=== PATIENT | female | born 1935 | race Caucasian/White ===

== ENCOUNTER 2024-05-05 10:55 | Outpatient (CLI) | payer MEDICARE, OTHER, SELFPAY ==
--- NOTE | 2024-05-05 10:45 | RT.EKG_ITS ---
APPROVED REPORT Exam: Resting ECG Reason for Exam: hx of HB Patient Location: O HR:95 bpm ECG Measurements Heart Rate 95 AXIS OK 158 P 37 QRSd 83 QRS 29 QT 337 T 44 QTc 424 Conclusion Sinus rhythm...normal P axis, V-rate 50- 99 Abnormal R-wave progression, early transition...QRS area>0 in V2 Otherwise normal ECG
== END 2024-05-05 10:56 | disposition home or self-care (01) ==
LOC: DI.CARD 10:59
PROVIDERS: PCP Internal Medicine; Visit Provider Student in an Organized Health Care Education/Training Program
DX: I44.2 Atrioventricular block, complete (principal); Z95.0 Presence of cardiac pacemaker
CPT/HCPCS: 93010

== ENCOUNTER → 2024-05-05 11:22 | Outpatient (BNVA) | payer MEDICARE, OTHER, SELFPAY | PROVIDERS: PCP Internal Medicine; Referring Provider Internal Medicine; Visit Provider Student in an Organized Health Care Education/Training Program | DX: Z95.810 Presence of automatic (implantable) cardiac defibrillator (principal); I44.1 Atrioventricular block, second degree | CPT/HCPCS: 93005; 93282 ==

== ENCOUNTER → 2024-11-03 14:05 | Outpatient (BNVA) | payer MEDICARE, SELFPAY | PROVIDERS: PCP Family Medicine; Referring Provider Family Medicine; Visit Provider Registered Nurse | DX: I44.1 Atrioventricular block, second degree (principal); Z45.018 Encounter for adjustment and management of other part of cardiac pacemaker | CPT/HCPCS: 93280 ==